=== PATIENT | female | born 1995 | race Caucasian/White ===

== ENCOUNTER 2016-04-29 07:57 | Emergency (ER) | payer BC ==
--- NOTE | 2016-04-29 08:53 | UC ---
Respiratory Complaint HPI - HPI Summary HPI Summary: 21 yo female with a 4 day hx of fever/chills/productive of sputum Now with chest tightness and hemoptsis gags and vomits - History of Current Complaint Chief Complaint: UCGeneralIllness Stated Complaint: COUGH,VOMIT,SORE THROAT Time Seen by Provider: 04/29/16 08:51 Hx Obtained From: Patient Hx Last Menstrual Period: 04/07/16 Onset/Duration: Gradual Onset, Lasting Days Timing: Constant Severity Initially: Moderate Severity Currently: Moderate Pain Intensity: 4 Pain Scale Used: 0-10 Numeric Character: Cough: Productive Aggravating Factors: Deep Breaths, Recumbent Position Alleviating Factors: Nothing Associated Signs And Symptoms: Positive: Dyspnea, Fever, Chills, Wheezing, Nasal Congestion - Allergies/Home Medications Allergies/Adverse Reactions: Allergies Allergy/AdvReac Type Severity Reaction Status Date / Time Penicillins Allergy Hives Verified 04/29/16 08:04 PMH/Surg Hx/FS Hx/Imm Hx Previously Healthy: Yes Respiratory History Of: Denies: Asthma, Bronchitis, Pneumonia - Surgical History Surgical History: Yes Surgery Procedure, Year, and Place: dental - Family History Known Family History: Positive: Diabetes - Social History Alcohol Use: Weekly Alcohol Amount: 1-2 times a week Substance Use Type: None Smoking Status (MU): Never Smoked Tobacco - Immunization History Most Recent Influenza Vaccination: none Review of Systems Constitutional: Fever, Chills Skin: Negative Eyes: Negative ENT: Nasal Discharge Respiratory: Cough, Other - hemoptsis Cardiovascular: Negative Gastrointestinal: Negative Genitourinary: Negative Motor: Negative Neurovascular: Negative Musculoskeletal: Myalgia Neurological: Negative Psychological: Negative All Other Systems Reviewed And Are Negative: Yes Physical Exam Triage Information Reviewed: Yes Appearance: Well-Appearing, No Pain Distress, Well-Nourished Vital Signs: Initial Vital Signs Temp 99.5 F 04/29/16 07:59 Pulse 92 04/29/16 07:59 Resp 17 04/29/16 07:59 BP 138/83 04/29/16 07:59 Pulse Ox 99 04/29/16 07:59 Vital Signs Reviewed: Yes Eyes: Positive: Conjunctiva Clear ENT: Positive: Hearing grossly normal, Pharynx normal, Nasal congestion, Nasal drainage, TMs normal. Negative: Tonsillar exudate, Trismus, Muffled/hoarse voice Neck: Positive: Supple, Nontender Respiratory: Positive: No respiratory distress, No accessory muscle use, Wheezing - with forced expiration Cardiovascular: Positive: RRR, No Murmur. Negative: Tachycardia, Bradycardia Musculoskeletal: Positive: ROM Intact, No Edema Neurological: Positive: Alert Psychological Exam: Normal Skin Exam: Normal UC Diagnostic Evaluation - Laboratory O2 Sat by Pulse Oximetry: 99 - normal/not hypoxic Re-Evaluation - Re-Evaluation First Eval Change: Improved - lungs clear/feels better Respiratory Course/Dx - Differential Dx/Diagnosis Provider Diagnoses: acute bronchitis with bronchospasm Discharge - Discharge Plan Condition: Stable Disposition: HOME Prescriptions: Azithromycin TAB* [Zithromax TAB*] 250 mg PO DAILY #6 tab Prednisone [Deltasone] 40 mg PO DAILY #8 tab Patient Education Materials: Acute Bronchitis (ED) Forms: *School Release Referrals: Non Staff,Doctor [Primary Care Provider] - Additional Instructions: use inhaler as directed recheck in 4-5 days if not better recheck for worsening symptoms
[2016-04-29] MEDS ORDERED: Albuterol 2.5 MG/3 ML NEB.SOL* (0.083%) INH ONE (09:06)
[2016-04-29] MEDS ORDERED: predniSONE TAB* 20 MG PO ONE (09:06)
[2016-04-29] MEDS ORDERED: Ipratropium 0.5MG/2.5ML NEB* 0.5 MG/2.5 ML NEB.SOLN INH ONE (09:06)
--- NOTE | 2016-04-29 09:14 | RAD ---
INDICATION: Fever, chills, hemoptysis, shortness of breath. COMPARISON: None. TECHNIQUE: Dual energy PA and routine lateral views of the chest were obtained. REPORT: Clear lungs and pleural spaces. Negative for pneumothorax. The heart, pulmonary vasculature, and mediastinal contours are unremarkable. Slight RIGHT convex curve of the thoracic spine below the threshold for scoliosis. IMPRESSION: No evidence for pneumonia.
[2016-04-29] MEDS ORDERED: Albuterol HFA INHALER* 8 gm MDI INH ONE (09:51)
== END 2016-04-29 10:04 | disposition home or self-care (01) ==
LOC: UCCORT 07:57
DX: J20.9 Acute bronchitis, unspecified (principal); Z88.0 Allergy status to penicillin
CPT/HCPCS: 71020; 99213; A9270-GY; G0463; J7512; J7644